=== PATIENT | female | born 1945 | race Two or more races ===

== ENCOUNTER 2020-05-01 11:10 | Emergency (ER) | payer MEDICARE, MEDICAID ==
[~2020-05-01] VITALS: Ht 149.9 cm; Wt 72.7 kg
[2020-05-01] MEDS ORDERED: ketorolac tromethamine 15mg/ml inj. IM ONE (12:45)
[2020-05-01] MEDS ORDERED: DICL100G30 TOP (13:23)
[2020-05-01 13:45] VITALS: BP 154/68
== END 2020-05-01 13:35 | disposition home or self-care (01) ==
LOC: ER 11:12
DX: M19.90 Unspecified osteoarthritis, unspecified site (principal); M22.2X9 Patellofemoral disorders, unspecified knee; M25.562 Pain in left knee; M25.561 Pain in right knee; Z79.899 Other long term (current) drug therapy
CPT/HCPCS: 73564; 96372; 99283; J1885